=== PATIENT | female | born 1955 | race Caucasian/White ===

== ENCOUNTER 2025-03-21 13:07 | Outpatient (CLI) | payer MEDICARE, MEDICAID | END 2025-03-21 13:08 | disposition home or self-care (01) | LOC: CSHWCC 13:07 | PROVIDERS: ATTEND Nurse Practitioner Family | DX: S21.109D Unspecified open wound of unspecified front wall of thorax without penetration into thoracic cavity, subsequent encounter (principal); E11.622 Type 2 diabetes mellitus with other skin ulcer; L98.499 Non-pressure chronic ulcer of skin of other sites with unspecified severity; I50.22 Chronic systolic (congestive) heart failure | CPT/HCPCS: 99213; G0463 ==

== ENCOUNTER 2025-04-04 12:36 | Outpatient (CLI) | payer MEDICARE, MEDICAID | END 2025-04-04 12:37 | disposition home or self-care (01) | LOC: CSHWCC 12:36 | PROVIDERS: ATTEND Nurse Practitioner Family | DX: S21.109D Unspecified open wound of unspecified front wall of thorax without penetration into thoracic cavity, subsequent encounter (principal); E11.622 Type 2 diabetes mellitus with other skin ulcer; L98.499 Non-pressure chronic ulcer of skin of other sites with unspecified severity; I50.22 Chronic systolic (congestive) heart failure | CPT/HCPCS: 99213; G0463 ==